=== PATIENT | female | born 1985 | race Caucasian/White ===

== ENCOUNTER 2020-06-17 10:35 | Outpatient (RCR) | payer OTHER, SELFPAY ==
--- NOTE | ~2020-06-17 | US_ITS ---
EXAMINATION: US OB follow up EXAM DATE: 06/17/2020 12:10 INDICATION: Past due date. 3rd trimester. TECHNIQUE: Pelvic obstetrical transabdominal sonogram was performed by a technologist. There are mu ltiple grayscale and Doppler images available for interpretation. There are no earlier studies of th is gestation for comparison. FINDINGS: There is a single fetus identified in vertex presentation with a heart rate of 150 beats pe r minute. The placenta is located in the posterior position. There is no sonographic evidence of ret roplacental hemorrhage identified. The amniotic fluid index is 12 centimeters, which is normal. BIOMETRIC DATA: Biparietal diameter (BPD): 9.6cm ----------------> 39 weeks 0 days. Head circumference (HC): 34.4 cm ----------------> 39 weeks 5 days. Abdominal circumference (AC): 32.8 cm ----------> 36 weeks 5 days. Femur length (FL): 7.5 cm --------------------------> 38 weeks 1 day. These measurements are concordant. HC/AC ratio is 1.05 (The 5th -- 95th percentile range is 0.88-1.06. Estimated weight is 3280 g +/- 492 g. This is the 18th percentile when the currently reported clinical gestation age 40 weeks 4 days, clinical estimated date of delivery (MURPHY-OPE) 06/13 is used. F etal estimated gestational age based on measurements from this exam is 38 weeks 3 days, with an estim ated date of delivery (MURPHY-AUA) 06/28. IMPRESSION: 1. Single fetus in vertex presentation with heart rate 150 beats per minute. 2. Estimated weight of 3280 grams, 18th percentile using the currently reported clinical gesta tion age of 20 weeks 4 days, MURPHY(OPE) 06/13. 3. Normal JOSELITO 12 cm. Reviewed, dictated and finalized at location A. IMPRESSION: 1. Single fetus in vertex presentation with heart rate 150 beats per minute. 2. Estimated weight of 3280 grams, 18th percentile using the currently r eported clinical gestation age of 20 weeks 4 days, MURPHY(OPE) 06/13. 3. Normal JOSELITO 12 cm.
[2020-06-17 12:53] VITALS: BP 108/64; PULSE 66
== END 2020-06-23 11:13 | disposition home or self-care (01) ==
LOC: ANHOBOP 10:35
PROVIDERS: Visit Provider Obstetrics & Gynecology
DX: O48.0 Post-term pregnancy (principal); Z3A.40 40 weeks gestation of pregnancy
CPT/HCPCS: 59025; 76816

== ENCOUNTER 2020-06-19 02:50 | Inpatient (IN) | payer OTHER, SELFPAY ==
[2020-06-19] VITALS (18 sets, daily range): BP systolic 88–124; BP diastolic 50–74; PULSE 53–91; RESP 13–20; TEMP 36.6–37; O2SAT 95; BMI 25.5
--- NOTE | 2020-06-19 02:50 | LDADM ---
This patient, Brittany Arevalo, was admitted to Labor/Delivery/Recovery 107 on 06/19/20 at 02:50. Plans for labor, pain management and were discussed with patient. Patient/family oriented to hospital policies and general routines including ID bracelet, bed and alarms, visiting hours, pain management, procedures, bathroom and other care routines, personal items, smoking policy, room service/diet and guest tray routines, security routines, and visiting hours. Patient/Family are encouraged to report perceived risks to care and to ask questions if they do not understand what they are told or what they should do. See OBIX for further documentation.
[2020-06-19 03:27] LABS: Basophils Percent Auto 0.4 % (0.2-1.2); Eosinophils Absolute Auto 0.1 K/mm3 (0-0.3); Eosinophils Percent Auto 1.3 % (0-4.4); Hemoglobin 12.9 g/dL (12.0-15.0); Immature Granulocyte Absolute 0.03 K/mm3 (0.00-0.031); Immature Granulocyte Percent A 0.4 % (0-0.5); Lymphocytes Absolute Auto 1.67 K/mm3 (0.9-3.2); Lymphocytes Percent Auto 20.2 % (18.3-44.2); Mean Corpuscular HGB Conc 33.9 g/dl (32-36); Mean Corpuscular Hemoglobin 29.1 pg (26-34); Mean Corpuscular Volume 85.6 fl (80-100); Mean Platelet Volume 11.1 fl (7.4-10.4); Monocytes Absolute Auto 0.5 K/mm3 (0.1-0.6); Monocytes Percent Auto 6.5 % (2.6-8.5); Neutrophils Absolute Auto 5.9 K/mm3 (1.3-6.7); Neutrophils Percent Auto 71.2 % (45.5-73.1); Platelet Count Result 197 k/mm3 (150-375); Red Blood Count 4.44 M/mm3 (4.2-5.4); Red Cell Distribution Width 14.5 % (11.5-14.5); White Blood Count 8.3 K/mm3 (4.5-10.0)
--- NOTE | 2020-06-19 05:29 | PM.IMHP ---
H&P: HPI History of Present Illness Date/Time: 06/19/20 05:29 Chief complaint: Contractions Narrative: Brittany Arevalo is a 35 year old female 0 2 whose last menstrual period was 09/10/2019 EDC is February 02 presents at 40-,6/7 weeks gestation active labor. She is negative for group B strep. She declines a noninvasive test an epidural. Review of Systems Review of Systems: All systems reviewed & are unremarkable except as noted in HPI and below PMFSH Family History Family History Other No pertinent family history Social History Social History Smoking status: Never smoker Substance use: never Gender identity (if verbalized by the patient): Female Spiritual care concerns: No Meds Home Medications and Allergies Home Medications Medication Instructions Recorded Confirmed Type cholecalciferol (vitamin D3) 50,000 unit PO WEEKLY 06/19/20 06/19/20 History Allergies Allergy/AdvReac Type Severity Reaction Status Date / Time No Known Allergies Allergy Verified 06/17/20 19:46 Vital Signs Vital Signs - 24 hr 06/19/20 03:01 06/19/20 03:02 06/19/20 04:59 Temperature 97.8 F 97.9 F Pulse Rate 70 Respiratory Rate 20 20 Blood Pressure 97/62 L 06/19/20 05:00 Temperature Pulse Rate 62 Respiratory Rate Blood Pressure 97/50 L Exam Const: General: no acute distress Eyes: General: appearance normal, both eyes and all related structures Neck: Neck: supple and no JVD Thyroid: thyroid normal Resp: Effort & Inspection: normal respiratory effort Auscultation: clear to auscultation bilaterally Cardio: Rate: regular rate Rhythm: regular rhythm GI: Inspection: non-distended GI Palp: Yes Soft to palpation, No Tenderness to palpation present (GI) and No Guarding due to palpation present (GI) Auscultation: normal bowel sounds : External Female Exam: normal external appearance Speculum Exam - Vagina: normal appearance of the vagina Speculum Exam - Cervix: normal appearance of the cervix ( Cervix room/ 100%/ -1. AROM clear. FHTs reassuring) Skin: General skin exam: no rashes or lesions noted Extrem: General: normal to inspection and no edema Psych: Mental Status: mental status grossly normal Affect: normal affect H&P: Results Labs Labs: Short CBC 06/19/20 Range/Units 03:17 WBC 8.3 (4.5-10.0) K/mm3 Hgb 12.9 (12.0-15.0) g/dL Hct 38.0 (37.0-47.0) % Plt Count 197 (150-375) k/mm3 Assessment and Plan Additional Plan impression: Term in active labor Plan: Spontaneous vaginal delivery is expected. She declines an epidural
[2020-06-19] MEDS: CALCIUM CARBONATE (TUMS) 500 MG (200 MG ELEMENTAL) PO (05:35)
[2020-06-19] MEDS: OXYTOCIN 30 UNITS/NS 500 ML 30 UNITS/500 ML BAG 999 UNITS IV CONT (05:53)
--- NOTE | 2020-06-19 05:58 | PM.OBPRVD ---
OB - Delivery Note Procedure Delivery date: 06/19/20 Intrapartal events: None Induction method: none Delivery monitor: external FHT Route of delivery: Laceration description: None Specimen: No Estimated blood loss (mL): 57 Anesthesia type: None Disposition: floor [place] Baby Date of : 06/19/20 Time of : 05:50 Weeks of gestation at delivery: 40 gender: Male presentation: vertex position: Left Occiput Anterior Placenta delivery description: Spontaneous cord vessel description: 3 Vessels score one minute: 9 score five minutes: 9
[2020-06-19] MEDS: BENZOCAINE 20% AER SPR (*SP) 56 GM CAN 1 SPRAY TOPICAL (08:48)
[2020-06-19] MEDS: WITCH HAZEL 40 PADS 1 PAD TOPICAL (08:48)
[2020-06-19] MEDS: IBUPROFEN 600 MG TABLET PO (20:56)
[2020-06-20 04:43] LABS: Hematocrit 33.4 % (37.0-47.0)
[2020-06-20 06:52] LABS: Rapid Plasma Reagin Non-Reactive (NonReactive)
[2020-06-20] MEDS: MULTIVIT/MIN/PREN/FOL AC/IRON TABLET 1 TAB PO (07:51)
[2020-06-20] MEDS: IBUPROFEN 600 MG TABLET PO (07:51)
[2020-06-20 08:20] VITALS: BP 105/63; PULSE 61; RESP 16; TEMP 37; O2SAT 97
--- NOTE | 2020-06-20 09:02 | PM.OBDSVD ---
DS: Admitting Diagnosis Admitting Diagnosis Admitting Diagnosis: Contractions OB - DS: Summary OB Procedures : None OB Procedures Intrapartum: Spontaneous Vag Delivery OB Procedures: : None Peripartum Data Infant Delivery Method: Natural Vaginal Laceration description: None complications: none Status at Discharge Functional status at discharge: independent ambulation Overall status at discharge: patient is back to baseline Time Spent with Patient Time attestation: Total time spent providing and/or coordinating discharge services: Time spent: Less than 30 minutes Exam Const: General: comfortable and no acute distress Resp: Effort & Inspection: normal respiratory effort Auscultation: clear to auscultation bilaterally Cardio: Rate: regular rate GI: GI Palp: Yes Soft to palpation Auscultation: normal bowel sounds Other: Fundus firm below umbilicus Psych: Appearance: grossly normal Mental Status: mental status grossly normal Affect: normal affect DS: Data Data Completed and Pending Labs on day of discharge: Labs from last 24 hours 06/20/20 06/19/20 04:32 03:17 Hgb 11.0 L Hct 33.4 L RPR Non-reactive Discharge Plan Discharge Discharging Clinician: Hernan Bernal Patient Disposition: Home, Self-Care Activity: as tolerated and pelvic rest Diet: regular Discharge Instructions: call or return for temperature >100.4, bleeding >2 pads/hr for 2 hrs, pain not controlled with medications, signs/symptoms of mastitis Patient Instructions: Antibiotic Form, Vaginal Delivery (DC) Stand Alone Forms: General Discharge Information Follow-up/Referrals: Hernan Bernal MD [Physician] - Discharge Medications: New acetaminophen [Mapap (acetaminophen)] 325 mg Tablet 650 mg PO Q6H PRN (Reason: Mild Pain (1-3) Or Headache) Qty: 30 RF: 0 ibuprofen 600 mg Tablet 600 mg PO Q6H PRN (Reason: Cramping) Qty: 30 RF: 0 Cyr-D-Cokdkv Cream 1 applic topical PRN PRN (Reason: Sore Nipples) Qty: 1 RF: 0 Continued cholecalciferol (vitamin D3) 1,250 mcg (50,000 unit) capsule 50,000 unit PO WEEKLY RF: 0 Date of admission: 06/19/20 02:50 Primary Care Provider: PHYSICIAN,MATTRESS FILLER Admitting Provider: Hernan Bernal Attending physician on admission: Hernan Bernal
--- NOTE | 2020-06-20 13:30 | PC.NURSE ---
Consult with pt., mother verbalizes she is able to independently latch infant with appropriate positioning/alignment. She denies any nipple discomfort, is feeding as required and waking infant to feed if needed. Mother states she successfully breastfed first two children up to 2 years. This infant is eagerly awoken and latches without issues. Reviewed feeding cues, frequencies, duration of feedings, feeding elimination flow sheet, and signs of adequate intake. Nipple care reviewed. Instructed mother to call out for RN assistance if she is unable to latch infant for feeding or she has discomfort with nursing. Instructed feeding should be initiated three hours from start of last feeding or if feeding cues are noted before. Mother voiced understanding of information shared.
[2020-06-21 09:26] VITALS: BP 97/64; PULSE 71; RESP 18; TEMP 36.6
== END 2020-06-20 19:30 | disposition home or self-care (01) | DRG 807 ==
LOC: ANHLDR 03:05 → ANHOB2 09:26
PROVIDERS: Admitting Provider Obstetrics & Gynecology; Visit Provider Student in an Organized Health Care Education/Training Program
DX: O80 Encounter for full-term uncomplicated delivery (principal); Z37.0 Single live birth; Z3A.40 40 weeks gestation of pregnancy
CPT/HCPCS: 36415; 85014; 85018; 85025; 86592; 86850; 86900; 86901; A9270; J2590

== ENCOUNTER → 2023-11-11 15:25 | Outpatient (CLI) | payer OTHER, SELFPAY ==
--- NOTE | ~2023-11-11 | US_ITS ---
EXAMINATION: US OB /maternal detail DATE: 11/11/2023 15:59 INDICATION: Second trimester anatomic survey TECHNIQUE: Real-time ultrasound of the pelvis was performed. COMPARISON: None. FINDINGS: There is a single living fetus in variable presentation. The placenta is posterior and 3.4 cm from th e internal cervical os. The measured cervical length is 4 cm. heart rate is 139 beats per minut e (bpm). cardiac activity and movement are noted. The amniotic fluid index is subjective ly normal. The following anatomy was identified as normal: 4 chamber heart 3 vessel cord cord insertion kidneys urinary bladder stomach spine diaphragm ventricles cisterna magna cerebellum The following biometric data were obtained: Biparietal diameter (BPD): 4.6 cm; head circumference (HC): 17.5 cm; abdominal circumference (AC): 15 .6 cm; femur length (FL): 3.3 cm. These measurements are concordant. Estimated weight is 359 g +/- 53 g, which correlates with the 68th percentile when 03/29/2024 is used as estimated date of delivery. As single measurements, these parameters are each equal to the following estimated gestational ages w ith ranges of +/- 2 standard deviations: BPD: 19 weeks 6 days ( 18 weeks 1 days - 21 weeks 4 days). HC: 20 weeks 0 days ( 18 weeks 4 days - 21 weeks 3 days). AC: 20 weeks 6 days ( 18 weeks 5 days - 22 weeks 6 days). FL: 20 weeks 3 days ( 18 weeks 4 days - 22 weeks 1 days). estimated gestational age based solely on measurements from this exam is 20 weeks 2 days +/- 1 weeks 3 days. IMPRESSION: 1. Single living fetus in variable presentation. 2. Estimated weight is 359 g +/- 53 g, which correlates with the 68th percentile when 03/29/2024 is used as estimated date of delivery. Reviewed, dictated and finalized at location L. L HOLE FINISH OPENER IMPRESSION: 1. Single living fetus in variable presentation. 2. Estimated weight is 359 g +/- 53 g, which correlates with the 68th per centile when 03/29/2024 is used as estimated date of delivery.
== END ==
PROVIDERS: PCP Obstetrics & Gynecology; Visit Provider Obstetrics & Gynecology
DX: Z36.3 Encounter for antenatal screening for malformations (principal); Z3A.00 Weeks of gestation of pregnancy not specified
CPT/HCPCS: 76805

== ENCOUNTER 2024-03-19 19:54 | Outpatient (CLI) | payer OTHER, SELFPAY ==
[2024-03-19 20:30] VITALS: BP 112/72; PULSE 75
[2024-03-19 20:59] LABS: OBXCEM ROM Plus Negative
== END 2024-03-19 20:40 | disposition home or self-care (01) ==
LOC: ANHOBOP 20:31 → ANHLDR 03-24 08:21
PROVIDERS: Obstetrics & Gynecology Gynecology; Visit Provider Obstetrics & Gynecology
DX: O41.8X90 Other specified disorders of amniotic fluid and membranes, unspecified trimester, not applicable or unspecified (principal); Z3A.00 Weeks of gestation of pregnancy not specified
CPT/HCPCS: 59025; 84112; 99199

== ENCOUNTER 2024-03-22 01:10 | Inpatient (IN) | payer OTHER, SELFPAY ==
[2024-03-22] VITALS (176 sets, daily range): BP systolic 74–221; BP diastolic 39–146; PULSE 56–128; RESP 16; TEMP 36.1–36.7; O2SAT 88–100; BMI 27.6
--- NOTE | 2024-03-22 02:14 | PM.IMHP ---
H&P: HPI History of Present Illness Date/Time: 03/22/24 02:14 Chief Complaint: Labor at term Narrative: 31-year-old 5 para 3 whose last menstrual period was 06/23/2023, EDC is 03/28/2024, presents at 39 weeks gestation in active labor. has been uncomplicated. She desires permanent sterilization PMFSH Family History Family History Other No pertinent family history Social History Social History Smoking status: Never smoker Substance use: never Gender identity (if verbalized by the patient): Female Spiritual care concerns: No Meds Home Medications and Allergies Home Medications Medication Instructions Recorded Confirmed Type prenat.vits,srinivas,lby-kawg-tnige 1 tablet 03/05/24 History Allergies Allergy/AdvReac Type Severity Reaction Status Date / Time No Known Allergies Allergy Verified 06/17/20 19:46 Exam Const: General: cooperative, healthy appearing and comfortable Nutritional Appearance: average body habitus Orientation/consciousness: oriented to person, oriented to place and oriented to time HENMT: Head: normal to inspection Resp: Effort & Inspection: normal respiratory effort Cardio: Rate: regular rate Rhythm: regular rhythm Heart sounds: S1 normal heart sound present and S2 normal heart sound present GI: Inspection: normal to inspection : External Female Exam: normal external appearance Speculum Exam - Vagina: normal appearance of the vagina Speculum Exam - Cervix: normal appearance of the cervix ( cervix 4/ 80/-2. AROM clear. FHT is reassuring.) Assessment and Plan Assessment and plan (1) Term : Code(s): Z34.90 - Encounter for supervision of normal , unspecified, unspecified trimester Status: Acute Assessment and Plan: spontaneous vaginal deliveries expected
[2024-03-22 02:37] LABS: Basophils Percent Auto 0.3 % (0.2-1.2); Eosinophils Absolute Auto 0.1 K/mm3 (0-0.3); Eosinophils Percent Auto 1.4 % (0-4.4); Hematocrit 38.1 % (37.0-47.0); Hemoglobin 13.2 g/dL (12.0-15.0); Immature Granulocyte Absolute 0.05 K/mm3 (0.00-0.031); Immature Granulocyte Percent A 0.6 % (0-0.5); Lymphocytes Absolute Auto 1.57 K/mm3 (0.9-3.2); Lymphocytes Percent Auto 17.9 % (18.3-44.2); Mean Corpuscular HGB Conc 34.6 g/dl (32-36); Mean Corpuscular Hemoglobin 31.7 pg (26-34); Mean Corpuscular Volume 91.6 fl (80-100); Mean Platelet Volume 10.2 fl (7.4-10.4); Monocytes Absolute Auto 0.5 K/mm3 (0.1-0.6); Monocytes Percent Auto 5.5 % (2.6-8.5); Neutrophils Absolute Auto 6.5 K/mm3 (1.3-6.7); Neutrophils Percent Auto 74.3 % (45.5-73.1); Platelet Count Result 201 k/mm3 (150-375); Red Blood Count 4.16 M/mm3 (4.2-5.4); Red Cell Distribution Width 13.8 % (11.5-14.5); White Blood Count 8.8 K/mm3 (4.5-10.0)
--- NOTE | 2024-03-22 02:56 | LDADM ---
This patient, Brittany Arevalo, was admitted to Labor/Delivery/Recovery 103 on 03/22/24 at 01:10. Plans for labor, pain management and were discussed with patient. Patient/family oriented to hospital policies and general routines including ID bracelet, bed and alarms, visiting hours, pain management, procedures, bathroom and other care routines, personal items, smoking policy, room service/diet and guest tray routines, security routines, and visiting hours. Patient/Family are encouraged to report perceived risks to care and to ask questions if they do not understand what they are told or what they should do. See OBIX for further documentation.
[2024-03-22 03:30] LABS: HIV 1/2 Ab P24 Ag Result Negative (Negative)
--- NOTE | 2024-03-22 07:39 | P.PNAN_ITS ---
Anes - Eval Pre Procedure Procedure: labor epidural Date/Time: 03/22/24 07:39 Surgeon: melody Preop Diagnosis: pain during labor Pre Op Diagnosis: Contractions Patient Data Age: 39 Gender: F Height: 1.7 m Weight: 80 kg Last Vital Signs Temp 36.1 C L 03/22/24 06:15 Pulse 72 03/22/24 07:31 BP 112/60 03/22/24 07:31 Pulse Ox 96 03/22/24 07:38 O2 Del Method Room Air 03/22/24 01:10 Allergies Allergy/AdvReac Type Severity Reaction Status Date / Time No Known Allergies Allergy Verified 06/17/20 19:46 Home Medications Medication Instructions Recorded Confirmed Type prenat.vits,srinivas,qmw-mqre-oeyfo 1 tablet PO DAILY 03/05/24 03/22/24 History Laboratory Tests 03/22/24 02:28 WBC 8.8 K/mm3 (4.5-10.0) RBC 4.16 L M/mm3 (4.2-5.4) Hgb 13.2 g/dL (12.0-15.0) Hct 38.1 % (37.0-47.0) MCV 91.6 fl (80-100) MCH 31.7 pg (26-34) MCHC 34.6 g/dl (32-36) RDW 13.8 % (11.5-14.5) Plt Count 201 k/mm3 (150-375) MPV 10.2 fl (7.4-10.4) Immature Gran % (Auto) 0.6 H % (0-0.5) Neut % (Auto) 74.3 H % (45.5-73.1) Lymph % (Auto) 17.9 L % (18.3-44.2) [place] % (Auto) 5.5 % (2.6-8.5) Eos % (Auto) 1.4 % (0-4.4) Baso % (Auto) 0.3 % (0.2-1.2) Lymph # (Auto) 1.57 K/mm3 (0.9-3.2) [place] # (Auto) 0.5 K/mm3 (0.1-0.6) Eos # (Auto) 0.1 K/mm3 (0-0.3) Baso # (Auto) 0.0 K/mm3 (0.0-0.1) Abs Immat Gran (auto) 0.05 H K/mm3 (0.00-0.031) Absolute Neuts (auto) 6.5 K/mm3 (1.3-6.7) Absolute Nucleated RBC 0.000 K/mm3 (0.0-0.012) Nucleated RBC % 0.0 % (0.0-0.2) RPR Pending HIV 1&2 Ab/P24 Ag 4thGn Negative (Negative) Blood Type O Positive Antibody Screen Negative Patient hx anesthesia problems: none Family hx anesthesia problems: none Results Review: All pre-operative results and documents have been reviewed as part of the pre- operative evaluation. [facility] Family History Family History Other No pertinent family history Social History Social History Smoking status: Never smoker Second hand tobacco smoke exposure: No Substance use: never Do You Feel Safe in your Home?: Yes Lack of Transportation: No Lack of Food: Never True Current Housing: I Have Housing Concerned About Future Housing: No Difficulty Paying Gas/Electric Bills: No Difficulty Paying for Meds: No Currently Unemployed: No Education: Master's Degree or Higher Difficulty w/ Childcare or Family Care: No Gender identity (if verbalized by the patient): Female Spiritual care concerns: No Exam Day of Procedure 03/22/24 07:39
[2024-03-22] MEDS: fentaNYL CITRATE INJ (*CRX) 100 MCG/2 ML VIAL 50 MCG IV PUSH ×2 (10:51→12:16)
[2024-03-22] MEDS: OXYTOCIN 30 UNITS/NS 500 ML 30 UNITS/500 ML BAG IV CONT (10:53)
[2024-03-22] MEDS: LACTATED RINGERS 1,000 ML 125 ML IV CONT ×2 (10:53→12:50)
[2024-03-22] MEDS: ONDANSETRON INJ 4 MG/2 ML VIAL IV PUSH (12:37)
--- NOTE | 2024-03-22 12:47 | PM.OBPNLAB ---
Pain Control Date/time seen: 03/22/24 12:47 Pain control: tolerating well and epidural Pelvic Exam Dilation (cm): 6 Amniotic membrane status: Ruptured Contractions Monitor mode: External
--- NOTE | 2024-03-22 14:27 | PM.OBPNLAB ---
Pain Control Date/time seen: 03/22/24 14:27 Pain control: tolerating well and epidural Pelvic Exam Dilation (cm): 10 Effacement (%): 100 station: -1 Amniotic membrane status: Ruptured Contractions Monitor mode: External
--- NOTE | 2024-03-22 14:55 | PM.OBPRVD ---
OB - Vaginal Delivery Note Procedure Delivery date: 03/22/24 Induction method: None Delivery monitor: External FHT and External Uterine Route of delivery: Episiotomy description: None Laceration Description: None Specimen: No Quantitative Blood Loss (ml): 61 Anesthesia type: Epidural Disposition: Floor Complications: No immediate complications Baby Date of : 03/22/24 Time of : 14:48 Weeks of gestation at delivery: 41 gender: Female presentation: vertex position: Right Occiput Anterior Placenta delivery description: Spontaneous Cord Vessel Description: 3 Vessels score one minute: 8 score five minutes: 9 Narrative: The patient was admitted at 41 weeks gestation in active labor. Artificial rupture membranes performed progressive remarkable for stage II labor to completely dilated. She spontaneously delivered the head in a FARAZ position. Anterior posterior shoulder delivered spontaneously. Cord clamped x2 cut and paste to the warmer given improvement in a 1minute 9 5minutes. Cord blood was drawn placenta delivered spontaneously. Twenty of Pitocin placed IV to help firm the uterus. No tears or lacerations were noted. There were no complications. She does plan tubal ligation
--- NOTE | 2024-03-22 14:58 | PM.DS ---
DS: Admitting Diagnosis Discharge Date 03/24/24 Admitting Diagnosis term /sterilization DS: Discharge Diagnosis Discharge Diagnosis (1) Term : Code(s): Z34.90 - Encounter for supervision of normal , unspecified, unspecified trimester Status: Inactive (2) Sterilization: Code(s): Z30.2 - Encounter for sterilization Status: Acute DS: Summary Hospital Course Reason for hospitalization: patient was admitted underwent spontaneous vaginal delivery with epidural anesthesia on 03/22/2024 were. Hospital Course: Patient had spontaneous vaginal delivery which was followed by tubal ligation on 03/23/2024. Her hospital course was unremarkable. She remained afebrile. She was up, voiding without difficulty, eating regular diet, ambulating, and generally without complaints. Time Spent with Patient Time attestation: Total time spent providing and/or coordinating discharge services: Exam Const: General: cooperative, healthy appearing and comfortable Nutritional Appearance: average body habitus Orientation/consciousness: oriented to person, oriented to place and oriented to time Resp: Effort & Inspection: normal respiratory effort Cardio: Rate: regular rate Rhythm: regular rhythm Heart sounds: S1 normal heart sound present and S2 normal heart sound present GI: Inspection: normal to inspection and incision ( Ready clean dry intact) DS: Data Data Completed and Pending Labs on day of discharge: Labs from last 24 hours 03/22/24 02:28 WBC 8.8 RBC 4.16 L Hgb 13.2 Hct 38.1 MCV 91.6 MCH 31.7 MCHC 34.6 RDW 13.8 Plt Count 201 MPV 10.2 Immature Gran % (Auto) 0.6 H Neut % (Auto) 74.3 H Lymph % (Auto) 17.9 L [place] % (Auto) 5.5 Eos % (Auto) 1.4 Baso % (Auto) 0.3 Lymph # (Auto) 1.57 Carbon # (Auto) 0.5 Eos # (Auto) 0.1 Baso # (Auto) 0.0 Abs Immat Gran (auto) 0.05 H Absolute Neuts (auto) 6.5 Absolute Nucleated RBC 0.000 Nucleated RBC % 0.0 RPR Pending HIV 1&2 Ab/P24 Ag 4thGn Negative Blood Type O Positive Antibody Screen Negative Discharge Plan Discharge Attending physician on discharge: Vadim Calloway Discharging Clinician: Dalla Meg,Vadim J. Patient Disposition: Home, Self-Care Activity: may shower and pelvic rest Diet: heart healthy Wound Care Instructions: follow printed instructions Patient Instructions: Antibiotic Form Stand Alone Forms: General Discharge Information Follow-up/Referrals: Vadim Calloway MD [Physician] - Discharge Medications: New hydrocodone-acetaminophen 5-325 mg tablet 1 tablet PO Q4H PRN (Reason: pain) Qty: 20 0RF Continued #2 Tablet 1 tablet PO DAILY Date of admission: 03/22/24 01:10 Primary Care Provider: PHYSICIAN,SYSTEM SOFTWARE PROGRAMMER Admitting Provider: Vadim Calloway Attending physician on admission: Vadim Calloway Condition: Stable
[2024-03-22] MEDS: OXYTOCIN 30 UNITS/NS 500 ML 30 UNITS/500 ML BAG 125 UNITS IV CONT (15:28)
[2024-03-22] MEDS: WITCH HAZEL 40 PADS 1 PAD TOPICAL (17:57)
[2024-03-22] MEDS: BENZOCAINE 20% AER SPR (*SP) 56 GM CAN 1 SPRAY TOPICAL (17:57)
[2024-03-22] MEDS: IBUPROFEN 600 MG TABLET PO (19:17)
[2024-03-22] MEDS: ACETAMINOPHEN 325 MG TABLET 650 MG PO (19:18)
--- NOTE | 2024-03-22 21:52 | PC.NURSE ---
2119- Pt up to restroom with Antoinette COLLADO without difficulty, unmeasured void. Pt assisted back to bed.
[2024-03-23] VITALS (7 sets, daily range): BP systolic 92–105; BP diastolic 54–67; PULSE 55–97; RESP 16–20; TEMP 36.1–36.9; O2SAT 94–100
[2024-03-23] MEDS: IBUPROFEN 600 MG TABLET PO ×3 (00:42→16:52)
[2024-03-23] MEDS: ACETAMINOPHEN 325 MG TABLET 650 MG PO ×2 (00:43→10:15)
[2024-03-23] MEDS: LACTATED RINGERS 1,000 ML 125 ML IV CONT (03:04)
[2024-03-23] MEDS: SIMETHICONE 80 MG TAB.CHEW PO ×4 (03:17→16:53)
[2024-03-23 04:31] LABS: Hematocrit 37.5 % (37.0-47.0); Hemoglobin 12.5 g/dL (12.0-15.0)
--- NOTE | 2024-03-23 06:39 | WPDHPUPDATE1 ---
History and Physical Update Update Date/Time: 03/23/24 06:39 History and Physical has been reviewed, including an updated exam of the patient. There are NO changes in the patient's condition. Risks, benefits, and alternatives have been discussed and questions answered. Patient agrees to proceed with procedure. reviewed ppbtl
--- NOTE | 2024-03-23 06:46 | PM.OBPNVD ---
OB - PN: Subj Subjective Date/time seen: 03/23/24 06:46 Patient comments: no complaints and pain well controlled baby status: doing well and nursing well OB - PN: Obj Data Labs 03/23/24 03:06 Labs: Laboratory Results - last 24 hr 03/23/24 03:06 Hgb 12.5 Hct 37.5 OB - PN A/P Plan day: 1 Plan: routine care Comments: btl today Time Spent With Patient Time: Total time spent is greater than 50% in coordination of care (as documented) at patient's floor/unit and/or counseling patient: Time with patient: less than 15 minutes Exam Const: General: cooperative, healthy appearing and comfortable Nutritional Appearance: average body habitus Orientation/consciousness: oriented to person, oriented to place and oriented to time Resp: Effort & Inspection: normal respiratory effort Cardio: Rate: regular rate Rhythm: regular rhythm Heart sounds: S1 normal heart sound present and S2 normal heart sound present GI: Inspection: normal to inspection
[2024-03-23] MEDS: LACTATED RINGERS 1,000 ML 30 ML IV CONT (07:40)
--- NOTE | 2024-03-23 07:44 | WPDANESEPPF ---
Anes - Initial Pre Proc Eval Procedure: Operation Date: 03/23/24 08:00 Proposed Procedures p Post- Tubal Ligation - Vadim Weaver MD Date/Time: 03/23/24 07:44 Surgeon: Vadim Weaver MD Pre Op Diagnosis: Contractions Patient Data Age: 39 Gender: F Height: 1.7 m Weight: 80 kg Last Vital Signs Temp 36.9 C 03/23/24 00:46 Pulse 89 03/23/24 00:46 Resp 16 03/23/24 00:46 BP 98/54 L 03/23/24 00:46 Pulse Ox 99 03/23/24 00:46 O2 Del Method Room Air 03/22/24 01:10 Allergies Allergy/AdvReac Type Severity Reaction Status Date / Time No Known Allergies Allergy Verified 06/17/20 19:46 Home Medications Medication Instructions Recorded Confirmed Type prenat.vits,srinivas,alb-rxvb-qhezl 1 tablet PO DAILY 03/05/24 03/22/24 History hydrocodone 5 mg-acetaminophen 325 1 tablet PO Q4H PRN pain #20 tabs 03/22/24 Rx mg tablet Laboratory Tests 03/23/24 03:06 Hgb 12.5 g/dL (12.0-15.0) Hct 37.5 % (37.0-47.0) Patient hx anesthesia problems: none Family hx anesthesia problems: none Results Review: All pre-operative results and documents have been reviewed as part of the pre-operative evaluation. [facility] Past Medical History Medical History (Updated 03/23/24 @ 07:44 by Vadim Brewster MD) Term Surgical History Surgical History (Updated 03/23/24 @ 07:44 by Vadim Brewster MD) H/O laparoscopy Family History Family History Other No pertinent family history Social History Social History Smoking status: Never smoker Second hand tobacco smoke exposure: No Substance use: never Do You Feel Safe in your Home?: Yes Lack of Transportation: No Lack of Food: Never True Current Housing: I Have Housing Concerned About Future Housing: No Difficulty Paying Gas/Electric Bills: No Difficulty Paying for Meds: No Currently Unemployed: No Education: Master's Degree or Higher Difficulty w/ Childcare or Family Care: No Gender identity (if verbalized by the patient): Female Spiritual care concerns: No Anes - Eval Final PreProcedure Day of Procedure 03/23/24 07:44 Patient weight: overweight Heart: regular rate and rhythm Lungs: clear to auscultation Airway: Mallampati scale class II Neurological: alert and oriented Last oral intake: >/= 8 hours ASA classification: II Emergent: no Anesthetic plan: proceed Anesthesia type and monitoring: regional epidural (will dose existing epidural but explained GA as plan if epidural in inadequate) and standard monitoring Results Review: All pre-operative results and documents have been reviewed as part of the pre-operative evaluation. Informed Consent: The patient's anesthetic plan and its attendant risks and benefits were discussed with the patient/family/POA. Questions were solicited and answers provided to the satisfaction of the patient/family/POA.
[2024-03-23] MEDS: LIDOCAINE HCL 1% LOCAL INJ 20 ML VIAL 10 ML INFILTRATE (08:11)
--- NOTE | 2024-03-23 08:26 | W.PM.PROC2 ---
Procedure Note - Detailed Date of Procedure 03/23/24 Pre-op Diagnosis Sterilization Post-op Diagnosis Same Procedure Performed tubal ligation via modified [place] Surgeon Vadim Weaver MD Anesthesia Local and Epidural Indications day 1 multiparous who desires sterilization Findings size uterus ovaries Description of Procedure the patient placed supine excellent epidural anesthesia 10cc% xylocaine anesthesia placed subumbilical E a 1cm incision was made progressive layers to the fascia. Fascia was incised fashion. Parietal peritoneum then elevated by Shannen clamps. This was entered by sharp dissection. The left fallopian tube was grasped with midportion. Traversed to its distal or min and repeat traversed to the midportion. A good knuckle of tube free tied with 0 chromic. The peritoneum between free tied then surveyed pierced and then free tied the distal and proximal legs with 0 chromic the portion between cut and passed off as portion of left fallopian tube. In similar fashion on the right the fallopian tube was grasped was midportion. This was traversed to its fimbriated end to assure this was a tube. This was read turned back to the midportion and a good knuckle of tube formed. The peritoneum pierced between and the distal and proximal legs free tied with 0 chromic. The portion between cut and passed off the table as portion of right fallopian tube. Hemostasis was assured the tube returned to the abdomen. The fascia closed with continuous running 0 Vicryl from lateral edge to lateral edge. Skin closed with 4-0 Monocryl and glue. Blood loss was 5cc all sponge, needle, instrument counts were correct. Were no immediate complication and Estimated Blood Loss 5 Drains No Packing No Pathology Yes Complications No immediate complications Condition Stable Disposition PACU
--- NOTE | 2024-03-23 09:20 | PC.NURSE ---
Patient returned to unit from tubal surgery. Patient transferred to post bed and bedside report was received. Patient stable.
--- NOTE | 2024-03-23 11:53 | PC.NURSE ---
1120. Mother verbalizes she is able to independently latch infant with appropriate positioning and alignment. She denies any nipple discomfort and is responsively . is currently meeting outcomes for weight, output, jaundice, blood sugar and feeding frequencies of 8-12 times in 24 hours. Mother declines any additional assistance or education at this time. Mother is encouraged to call for assistance if her doesn?t latch, pain with latching, questions or concerns. Mother voiced understanding of information shared along with the mom/baby guide for an additional resource. Reported to the Primary RN.
[2024-03-23] MEDS: HYDROcodone/acetaminophen (*CRX) 5-325 MG TABLET 1 TAB PO ×3 (12:09→23:30)
[2024-03-23] MEDS: MULTIVIT/MIN/PREN/FOL AC/IRON TABLET 1 TAB PO (12:09)
--- NOTE | 2024-03-23 14:30 | PC.NURSE ---
report received from Jihan Armendariz RN, care of patient assumed
--- NOTE | 2024-03-23 14:44 | WPDANLDPN2 ---
Anes-Prog Note L&D Date/Time: 03/23/24 14:44 Comfortable throughout: labor and delivery Neuraxial method: epidural Epidural/Spinal procedure site: clean & non-tender Neuro status: Neuro function grossly intact. Cardiovascular status: normal Respiratory status: normal Airway patency: baseline Mental status: baseline Post-Op hydration status: normal Vital Signs: Last Vital Signs Temp 36.1 C L 03/23/24 09:15 Pulse 56 L 03/23/24 09:15 Resp 16 03/23/24 09:15 BP 92/61 L 03/23/24 09:15 Pulse Ox 95 03/23/24 09:15 O2 Del Method Room Air 03/23/24 09:15 Pain score (VAS): 0/10 I/O: Intake & Output 03/22/24 03/23/24 03/23/24 23:59 07:59 15:59 Intake Total 670.8 500 Balance 670.8 500 Post-procedural complaints: none Patient feedback: Patient satisfied with anesthetic care.
[2024-03-23] MEDS: DOCUSATE SODIUM 100 MG CAPSULE PO (16:53)
[2024-03-23 19:09] LABS: Rapid Plasma Reagin Non-Reactive (NonReactive)
[2024-03-24 04:29] LABS: Hemoglobin 12.4 g/dL (12.0-15.0)
--- NOTE | 2024-03-24 07:11 | PM.OBPNVD ---
OB - PN: Subj Subjective Date/time seen: 03/24/24 07:11 Patient comments: no complaints and pain well controlled baby status: doing well and nursing well OB - PN: Obj Data Labs 03/24/24 04:01 Labs: Laboratory Results - last 24 hr 03/22/24 03/24/24 02:28 04:01 Hgb 12.4 Hct 39.0 RPR Non-reactive OB - PN A/P Plan day: 2 Plan: routine care, discharge home and follow up 6 weeks Time Spent With Patient Time: Total time spent is greater than 50% in coordination of care (as documented) at patient's floor/unit and/or counseling patient: Time with patient: less than 15 minutes Exam Const: General: cooperative, healthy appearing and comfortable Nutritional Appearance: average body habitus Orientation/consciousness: oriented to person, oriented to place and oriented to time Resp: Effort & Inspection: normal respiratory effort Cardio: Rate: regular rate Rhythm: regular rhythm Heart sounds: S1 normal heart sound present and S2 normal heart sound present GI: Inspection: normal to inspection and incision (cdi)
[2024-03-24] MEDS: DOCUSATE SODIUM 100 MG CAPSULE PO (08:03)
[2024-03-24] MEDS: MULTIVIT/MIN/PREN/FOL AC/IRON TABLET 1 TAB PO (08:03)
[2024-03-24] MEDS: HYDROcodone/acetaminophen (*CRX) 5-325 MG TABLET 1 TAB PO (08:04)
[2024-03-24] MEDS: TETANUS,DIPHTHERIA,AC PERTUSSIS ADULT (0.5 ML) BOOSTRIX IM (08:04)
[2024-03-24 08:10] VITALS: BP 106/64; PULSE 63; RESP 20; TEMP 36.6
--- NOTE | 2024-03-24 08:24 | PC.NURSE ---
0745: Pt moved to room 292 d/t ceiling leak noted during MD rounds this AM. Pt ambulated to room 292 independently accompanied by and baby after offering a wheelchair.
[2024-03-24] MEDS: CALCIUM CARBONATE (TUMS) 500 MG (200 MG ELEMENTAL) PO (12:09)
[2024-03-25 10:31] VITALS: BP 100/67; PULSE 73; RESP 18; TEMP 36.5; O2SAT 98
== END 2024-03-24 13:05 | disposition home or self-care (01) | DRG 798 ==
LOC: ANHLDR 15:00 → ANHOB2 19:04
PROVIDERS: Admitting Provider Obstetrics & Gynecology; Visit Provider Obstetrics & Gynecology
PROC: 0UB70ZZ Excision of Bilateral Fallopian Tubes, Open Approach (ICD-10-PCS; CPT 58605; principal; 2024-03-23 08:00)
DX: O80 Encounter for full-term uncomplicated delivery (principal); Z37.0 Single live birth; Z3A.39 39 weeks gestation of pregnancy; Z30.2 Encounter for sterilization
CPT/HCPCS: 36415; 85014; 85018; 85025; 86592; 86703; 86850; 86900; 86901; 88302; 90715; A9270; G0432; J2250; J2405; J2590; J3010; J7120